=== PATIENT | female | born 1960 | race Caucasian/White ===

== ENCOUNTER 2022-07-07 20:52 | Inpatient (IN) | payer MEDICARE, MEDICAID ==
[~2022-07-07] VITALS: Ht 165.1 cm; Wt 125.2 kg
[2022-07-07 21:46] LABS: BG BASE EXCESS -5.6 mmol/L (-2.0-2.0); BG CARBOXYHEMOGLOBIN 0.8 % (0.5-1.5); BG FRACTION INSPIRED OXYGEN 100; BG HCO3 ACT 19.2 mmol/L (22.0-26.0); BG METHEMOGLOBIN 0.4 % (0.0-1.5); BG OXYHEMOGLOBIN 97.8 % (94.0-97.0); BG PCO2 35.9 mmHg (35.0-45.0); BG PH 7.347 (7.350-7.450); BG PO2 170.7 mmHg (75.0-100.0); BG SAMPLE SITE RIGHT RADIAL; BG TOTAL HEMOGLOBIN 16.5 g/dL (12.0-18.0); BG TOTAL RESPIRATORY RATE 16 b/min; BG VENT MODE MASK - NRB
[2022-07-07 22:00] LABS: CHLORIDE 100 mEq/L (98-107)
[2022-07-07 22:30] LABS: ETHANOL BLOOD < 10 mg/dL
[2022-07-07 22:40] LABS: CREATINE KINASE 6966 IU/L (26-192)
[2022-07-07] MEDS ORDERED: VANCOMYCIN 1,000 MG in DEXT 5% WATER 250 ML IV NR (23:00)
[2022-07-07] MEDS ORDERED: SODIUM CHLORIDE 0.9% 1000ML BAG (SEPSIS BOLUS) IV ONE (23:00)
[2022-07-07] MEDS ORDERED: PIPERACILLIN/TAZ 3.375G PREMIX 50 ML IV NR (23:00)
[2022-07-07] MEDS ORDERED: ONDANSETRON HCL 4MG/2ML INJ IV PRN (23:15)
[2022-07-07] MEDS ORDERED: DOCUSATE SODIUM 100MG CAPSULE PO PRN (23:15)
[2022-07-07] MEDS ORDERED: MAGNESIUM/ALUMINUM HYDROXIDE/SIMETHICONE 30ML UDC PO PRN (23:15)
[2022-07-07] MEDS ORDERED: NITROGLYCERIN 0.4MG TABLET SL SL PRN (23:15)
[2022-07-07] MEDS ORDERED: CLONIDINE 0.1MG TABLET PO PRN (23:15)
[2022-07-07] MEDS ORDERED: IPRATROPIUM/ALBUTEROL 0.5-3(2.5)MG/3ML NEB NEB PRN (23:15)
[2022-07-07] MEDS ORDERED: HALOPERIDOL LACTATE 5MG/ML VIAL IM PRN (23:15)
[2022-07-07] MEDS ORDERED: ACETAMINOPHEN 325MG TABLET PO PRN (23:15)
[2022-07-07] MEDS ORDERED: GUAIFENESIN 200MG/10ML SUGAR FREE UDC PO PRN (23:15)
[2022-07-08] MEDS: DEXT 5%/LACTATED RINGERS 1,000 ML IV SCH ×2 (00:02→09:34)
[2022-07-08 00:18] LABS: T4 FREE 0.99 ng/dL (0.76-1.46)
[2022-07-08 00:45] LABS: FOLIC ACID (FOLATE) SERUM > 20.00 ng/mL (>5.38); VITAMIN B12 SERUM 860 pg/mL (211-911)
[2022-07-08 08:00] VITALS: BP 103/57
[2022-07-08 08:26] LABS: CLARITY URINE CLEAR (CLEAR); COLOR URINE YELLOW (YELLOW); KETONES URINE NEGATIVE (NEGATIVE); LEUKOCYTE ESTERASE URINE NEGATIVE (NEGATIVE); NITRITE URINE NEGATIVE (NEGATIVE); OCCULT BLOOD URINE 2+ (NEGATIVE); PH URINE 5.5 (4.5-8.0); PROTEIN URINE 1+ (NEGATIVE); UROBILINOGEN URINE 0.2 E.U./dL (0.2-1.0)
[2022-07-08] MEDS ORDERED: PANTOPRAZOLE SODIUM 40 MG/VIAL IV SCH (09:00)
[2022-07-08] MEDS: CITRIC ACID/SODIUM CITRATE SOLN 15ML UDC PO SCH ×3 (09:17→18:20)
[2022-07-08] MEDS: ASPIRIN 325MG EC TABLET PO SCH (09:17)
[2022-07-08 11:45] LABS: BASOPHILS % 0.4 % (0.0-2.0); EOSINOPHILS % 0.1 % (0.0-5.0); HEMATOCRIT. 38.8 % (36.0-48.0); HEMOGLOBIN. 12.8 g/dL (12.0-16.0); LYMPHOCYTES % 23.1 % (20.0-50.0); MEAN CORPUSCULAR HEMOGLOBIN 32.2 pg (28.0-32.0); MEAN CORPUSCULAR VOLUME 97.8 fL (81.0-99.0); MEAN PLATELET VOLUME 7.7 fl (7.4-10.4); MONOCYTES % 11.3 % (2.0-8.0); NEUTROPHILS % 65.1 % (40.0-76.0); PLATELET 82 x1000/uL (130-400); RED BLOOD CELL COUNT 3.97 mill/uL (4.2-5.4); RED CELL DISTRIBUTION WIDTH 14.9 % (11.6-14.6)
[2022-07-08 12:00] VITALS: BP 106/67
[2022-07-08] MEDS: FAMOTIDINE 20MG/2ML VIAL IV SCH (13:03)
[2022-07-08] MEDS: AZITHROMYCIN 500 MG in DEXT 5% WATER 250 ML IV SCH (13:04)
[2022-07-08] MEDS: CEFTRIAXONE 1,000 MG in DEXTROSE 5% WATER 50 ML IV SCH (13:04)
[2022-07-08] MEDS: ENOXAPARIN 40MG/0.4ML SYR SUBCUT SCH (14:00)
[2022-07-08] MEDS ORDERED: FLUT1DIS3 IH (14:15)
[2022-07-08] MEDS ORDERED: ALBU05 IH (14:16)
[2022-07-08] MEDS ORDERED: BENZ1TAB7 PO (14:18)
[2022-07-08] MEDS ORDERED: BENZ2TAB7 PO (14:18)
[2022-07-08] MEDS ORDERED: DIVA-75 PO (14:18)
[2022-07-08] MEDS ORDERED: FLUP10TA13 PO (14:19)
[2022-07-08] MEDS ORDERED: GABA300C PO (14:19)
[2022-07-08] MEDS ORDERED: LEVO75TA PO (14:20)
[2022-07-08] MEDS ORDERED: OLAN7.5T18 PO (14:20)
[2022-07-08] MEDS ORDERED: PROP10TA10 PO (14:21)
[2022-07-08 14:48] LABS: CHLORIDE 109 mEq/L (98-107)
[2022-07-08 14:55] LABS: PHOSPHORUS 5.1 mg/dL (2.5-4.9)
[2022-07-08 15:57] LABS: *AMPHETAMINES SCREEN URINE NEGATIVE (NEGATIVE); *BARBITURATES SCREEN URINE NEGATIVE (NEGATIVE); *BENZODIAZEPINES SCREEN URINE NEGATIVE (NEGATIVE); *COCAINE SCREEN URINE NEGATIVE (NEGATIVE); CANNABINOID URINE SCREEN NEGATIVE (NEGATIVE); METHADONE URINE SCREEN NEGATIVE (NEGATIVE); OPIATES URINE SCREEN NEGATIVE (NEGATIVE); PHENCYCLIDINE URINE SCREEN NEGATIVE (NEGATIVE)
[2022-07-08 16:00] VITALS: BP_SYST 101; BP_SYST 130; BP_DIAS 56; BP_DIAS 65
[2022-07-08 16:31] LABS: BASOPHILS % 0.3 % (0.0-2.0); EOSINOPHILS % 0.3 % (0.0-5.0); HEMATOCRIT. 38.6 % (36.0-48.0); HEMOGLOBIN. 12.6 g/dL (12.0-16.0); LYMPHOCYTES % 25.8 % (20.0-50.0); MEAN CORPUSCULAR VOLUME 97.4 fL (81.0-99.0); MEAN PLATELET VOLUME 7.7 fl (7.4-10.4); MONOCYTES % 10.8 % (2.0-8.0); NEUTROPHILS % 62.8 % (40.0-76.0); PLATELET 88 x1000/uL (130-400); RED BLOOD CELL COUNT 3.96 mill/uL (4.2-5.4); RED CELL DISTRIBUTION WIDTH 15.1 % (11.6-14.6)
[2022-07-08] MEDS ORDERED: LORA-249 MT (16:52)
[2022-07-08 20:00] VITALS: BP 121/51
[2022-07-09] VITALS: BP 136/80
[2022-07-09] MEDS: ACETAMINOPHEN 325MG TABLET PO PRN ×2 (02:57→09:01)
[2022-07-09 04:00] VITALS: BP 112/74
[2022-07-09 08:00] VITALS: BP 137/71
[2022-07-09] MEDS: FAMOTIDINE 20MG/2ML VIAL IV SCH (08:59)
[2022-07-09] MEDS: CITRIC ACID/SODIUM CITRATE SOLN 15ML UDC PO SCH (08:59)
[2022-07-09] MEDS: ASPIRIN 325MG EC TABLET PO SCH (08:59)
[2022-07-09] MEDS ORDERED: CEFTRIAXONE 1 G PREMIX 50 ML IV SCH (09:00)
[2022-07-09] MEDS: SODIUM CHLORIDE 0.45% 1,000 ML IV SCH ×2 (09:30→19:30)
[2022-07-09 09:43] LABS: CREATINE KINASE 2966 IU/L (26-192)
[2022-07-09] MEDS: AZITHROMYCIN 500 MG in DEXT 5% WATER 250 ML IV SCH (11:17)
[2022-07-09] MEDS: CEFTRIAXONE 1,000 MG in DEXTROSE 5% WATER 50 ML IV SCH (11:17)
[2022-07-09 12:00] VITALS: BP 105/70
[2022-07-09] MEDS: ENOXAPARIN 40MG/0.4ML SYR SUBCUT SCH (14:00)
[2022-07-09 14:04] LABS: BASOPHILS % 0.2 % (0.0-2.0); EOSINOPHILS % 1.5 % (0.0-5.0); HEMATOCRIT. 35.7 % (36.0-48.0); HEMOGLOBIN. 11.9 g/dL (12.0-16.0); LYMPHOCYTES % 29.3 % (20.0-50.0); MEAN CORPUSCULAR HEMOGLOBIN 32.4 pg (28.0-32.0); MEAN CORPUSCULAR VOLUME 97.2 fL (81.0-99.0); MEAN PLATELET VOLUME 8.1 fl (7.4-10.4); MONOCYTES % 9.6 % (2.0-8.0); NEUTROPHILS % 59.4 % (40.0-76.0); PLATELET 84 x1000/uL (130-400); RED BLOOD CELL COUNT 3.67 mill/uL (4.2-5.4); RED CELL DISTRIBUTION WIDTH 14.7 % (11.6-14.6)
[2022-07-09 16:00] VITALS: BP 98/62
[2022-07-09 20:00] VITALS: BP_SYST 100; BP_SYST 99; BP_DIAS 36; BP_DIAS 64
[2022-07-09] MEDS: IPRATROPIUM/ALBUTEROL 0.5-3(2.5)MG/3ML NEB HHN SCH (20:29)
[2022-07-10] VITALS: BP 100/64
[2022-07-10] MEDS: IPRATROPIUM/ALBUTEROL 0.5-3(2.5)MG/3ML NEB HHN SCH ×4 (01:57→20:11)
[2022-07-10] MEDS: ZOLPIDEM TARTRATE 5MG TABLET PO PRN ×2 (02:15→21:19)
[2022-07-10 04:00] VITALS: BP 103/59
[2022-07-10] MEDS: SODIUM CHLORIDE 0.45% 1,000 ML IV SCH (05:30)
[2022-07-10 07:28] LABS: BASOPHILS % 0.3 % (0.0-2.0); EOSINOPHILS % 3.2 % (0.0-5.0); HEMATOCRIT. 34.9 % (36.0-48.0); HEMOGLOBIN. 11.8 g/dL (12.0-16.0); LYMPHOCYTES % 30.4 % (20.0-50.0); MEAN CORPUSCULAR HEMOGLOBIN 32.8 pg (28.0-32.0); MEAN CORPUSCULAR VOLUME 96.7 fL (81.0-99.0); MEAN PLATELET VOLUME 7.8 fl (7.4-10.4); MONOCYTES % 8.4 % (2.0-8.0); NEUTROPHILS % 57.7 % (40.0-76.0); PLATELET 87 x1000/uL (130-400); RED BLOOD CELL COUNT 3.61 mill/uL (4.2-5.4); RED CELL DISTRIBUTION WIDTH 14.8 % (11.6-14.6)
[2022-07-10 08:00] VITALS: BP 104/57
[2022-07-10] MEDS: ACETAMINOPHEN 325MG TABLET PO PRN (08:22)
[2022-07-10] MEDS: FAMOTIDINE 20MG/2ML VIAL IV SCH (08:23)
[2022-07-10] MEDS: ASPIRIN 325MG EC TABLET PO SCH (08:23)
[2022-07-10 12:00] VITALS: BP 102/59
[2022-07-10] MEDS: CEFTRIAXONE 1,000 MG in DEXTROSE 5% WATER 50 ML IV SCH (12:11)
[2022-07-10] MEDS: AZITHROMYCIN 500 MG TABLET PO SCH (12:12)
[2022-07-10] MEDS: ENOXAPARIN 40MG/0.4ML SYR SUBCUT SCH (14:00)
[2022-07-10 16:00] VITALS: BP 114/71
[2022-07-10 20:00] VITALS: BP 123/57
[2022-07-10] MEDS: GUAIFENESIN 600MG ER TABLET PO SCH (21:19)
[2022-07-11] VITALS: BP 105/64
[2022-07-11] MEDS: IPRATROPIUM/ALBUTEROL 0.5-3(2.5)MG/3ML NEB HHN SCH ×4 (01:16→21:25)
[2022-07-11 04:00] VITALS: BP 122/68
[2022-07-11] MEDS: ASPIRIN 325MG EC TABLET PO SCH (09:20)
[2022-07-11] MEDS: GUAIFENESIN 600MG ER TABLET PO SCH ×2 (09:20→21:10)
[2022-07-11] MEDS: CEFTRIAXONE 1,000 MG in DEXTROSE 5% WATER 50 ML IV SCH (09:20)
[2022-07-11] MEDS: FAMOTIDINE 20MG TABLET PO SCH (09:21)
[2022-07-11] MEDS: ACETAMINOPHEN 325MG TABLET PO PRN (09:21)
[2022-07-11 10:07] LABS: ANTI-NUCLEAR ANTIBODIES DIRECT Negative (Negative)
[2022-07-11 12:00] VITALS: BP 112/69
[2022-07-11 13:44] LABS: BG CARBOXYHEMOGLOBIN 0.9 % (0.5-1.5); BG DEOXYHEMOGLOBIN 3.2 % (0.0-5.0); BG FRACTION INSPIRED OXYGEN 21; BG HCO3 ACT 29.6 mmol/L (22.0-26.0); BG METHEMOGLOBIN 0.2 % (0.0-1.5); BG OXYGEN SATURATION 96.8 % (92.0-98.5); BG OXYHEMOGLOBIN 95.7 % (94.0-97.0); BG PCO2 35.4 mmHg (35.0-45.0); BG PO2 81.4 mmHg (75.0-100.0); BG SAMPLE SITE RIGHT RADIAL; BG TOTAL HEMOGLOBIN 13.5 g/dL (12.0-18.0); BG VENT MODE ROOM AIR
[2022-07-11] MEDS: ENOXAPARIN 40MG/0.4ML SYR SUBCUT SCH (14:00)
[2022-07-11] MEDS: AZITHROMYCIN 500 MG TABLET PO SCH (14:34)
[2022-07-11 16:00] VITALS: BP 105/74
[2022-07-11] MEDS: SODIUM CHLORIDE 0.45% 1,000 ML IV SCH (17:57)
[2022-07-11 20:25] VITALS: BP 134/80
[2022-07-11] MEDS: VALPROIC ACID 250MG CAPSULE PO SCH (21:10)
[2022-07-11] MEDS: GABAPENTIN 300MG CAPSULE PO SCH (21:10)
[2022-07-11] MEDS: ZOLPIDEM TARTRATE 5MG TABLET PO PRN (21:10)
[2022-07-12 00:20] VITALS: BP 130/80
[2022-07-12] MEDS: IPRATROPIUM/ALBUTEROL 0.5-3(2.5)MG/3ML NEB HHN SCH ×4 (01:38→21:22)
[2022-07-12] MEDS: SODIUM CHLORIDE 0.45% 1,000 ML IV SCH (01:52)
[2022-07-12 04:00] VITALS: BP 127/77
[2022-07-12] MEDS: ACETAMINOPHEN 325MG TABLET PO PRN (05:18)
[2022-07-12] MEDS: VALPROIC ACID 250MG CAPSULE PO SCH ×3 (06:19→21:53)
[2022-07-12] MEDS: LEVOTHYROXINE SODIUM 75MCG TABLET PO SCH (06:19)
[2022-07-12] MEDS: GABAPENTIN 300MG CAPSULE PO SCH ×3 (06:19→21:53)
[2022-07-12 06:30] LABS: BASOPHILS % 0.5 % (0.0-2.0); EOSINOPHILS % 2.5 % (0.0-5.0); HEMATOCRIT. 38.6 % (36.0-48.0); HEMOGLOBIN. 12.8 g/dL (12.0-16.0); LYMPHOCYTES % 36.3 % (20.0-50.0); MEAN CORPUSCULAR VOLUME 96.3 fL (81.0-99.0); MEAN PLATELET VOLUME 7.9 fl (7.4-10.4); MONOCYTES % 7.4 % (2.0-8.0); NEUTROPHILS % 53.3 % (40.0-76.0); PLATELET 139 x1000/uL (130-400); RED BLOOD CELL COUNT 4.01 mill/uL (4.2-5.4); RED CELL DISTRIBUTION WIDTH 14.6 % (11.6-14.6)
[2022-07-12 08:02] VITALS: BP 114/73
[2022-07-12] MEDS: GUAIFENESIN 600MG ER TABLET PO SCH ×2 (08:36→21:53)
[2022-07-12] MEDS: FAMOTIDINE 20MG TABLET PO SCH (08:37)
[2022-07-12] MEDS: ASPIRIN 325MG EC TABLET PO SCH (08:37)
[2022-07-12 12:05] VITALS: BP 110/76
[2022-07-12] MEDS: AZITHROMYCIN 500 MG TABLET PO SCH (12:08)
[2022-07-12] MEDS: DEXT 5%/0.45% NACL 1000ML 1,000 ML IV SCH (12:08)
[2022-07-12] MEDS: CEFTRIAXONE 1,000 MG in DEXTROSE 5% WATER 50 ML IV SCH (12:08)
[2022-07-12] MEDS: ENOXAPARIN 40MG/0.4ML SYR SUBCUT SCH (13:20)
[2022-07-12 16:00] VITALS: BP 104/66
[2022-07-12 20:00] VITALS: BP 121/76
[2022-07-13] VITALS: BP 130/80
[2022-07-13] MEDS: IPRATROPIUM/ALBUTEROL 0.5-3(2.5)MG/3ML NEB HHN SCH ×4 (01:04→21:00)
[2022-07-13 04:00] VITALS: BP 118/60
[2022-07-13] MEDS: DEXT 5%/0.45% NACL 1000ML 1,000 ML IV SCH ×2 (05:47→22:02)
[2022-07-13] MEDS: VALPROIC ACID 250MG CAPSULE PO SCH ×3 (06:38→22:03)
[2022-07-13] MEDS: LEVOTHYROXINE SODIUM 75MCG TABLET PO SCH (06:38)
[2022-07-13] MEDS: GABAPENTIN 300MG CAPSULE PO SCH ×3 (06:38→22:04)
[2022-07-13 08:00] VITALS: BP 112/61
[2022-07-13] MEDS: FAMOTIDINE 20MG TABLET PO SCH (09:10)
[2022-07-13] MEDS: ASPIRIN 325MG EC TABLET PO SCH (09:10)
[2022-07-13] MEDS: GUAIFENESIN 600MG ER TABLET PO SCH ×2 (09:11→22:03)
[2022-07-13] MEDS: DESMOPRESSIN ACETATE 0.1MG TABLET PO SCH ×2 (09:11→22:04)
[2022-07-13] MEDS: ACYCLOVIR 400 MG TABLET PO SCH ×3 (09:11→23:35)
[2022-07-13 12:03] VITALS: BP 99/49
[2022-07-13] MEDS: CEFTRIAXONE 1,000 MG in DEXTROSE 5% WATER 50 ML IV SCH (14:04)
[2022-07-13] MEDS: ENOXAPARIN 40MG/0.4ML SYR SUBCUT SCH (14:06)
[2022-07-13 16:00] VITALS: BP 99/60
[2022-07-13 20:00] VITALS: BP_SYST 100; BP_SYST 127; BP_DIAS 72; BP_DIAS 75
[2022-07-14] VITALS: BP 101/54
[2022-07-14] MEDS: IPRATROPIUM/ALBUTEROL 0.5-3(2.5)MG/3ML NEB HHN SCH ×4 (01:35→21:38)
[2022-07-14 04:00] VITALS: BP 99/55
[2022-07-14] MEDS: LEVOTHYROXINE SODIUM 75MCG TABLET PO SCH (06:52)
[2022-07-14] MEDS: VALPROIC ACID 250MG CAPSULE PO SCH ×3 (06:53→21:30)
[2022-07-14] MEDS: GABAPENTIN 300MG CAPSULE PO SCH ×3 (06:53→21:30)
[2022-07-14] MEDS: ACYCLOVIR 400 MG TABLET PO SCH ×3 (07:09→22:21)
[2022-07-14 07:30] LABS: BASOPHILS % 0.4 % (0.0-2.0); EOSINOPHILS % 4.7 % (0.0-5.0); HEMATOCRIT. 38.2 % (36.0-48.0); HEMOGLOBIN. 12.6 g/dL (12.0-16.0); LYMPHOCYTES % 31.3 % (20.0-50.0); MEAN CORPUSCULAR HEMOGLOBIN 31.5 pg (28.0-32.0); MEAN CORPUSCULAR VOLUME 95.8 fL (81.0-99.0); MEAN PLATELET VOLUME 7.9 fl (7.4-10.4); MONOCYTES % 8.1 % (2.0-8.0); NEUTROPHILS % 55.5 % (40.0-76.0); PLATELET 167 x1000/uL (130-400); RED BLOOD CELL COUNT 3.99 mill/uL (4.2-5.4); RED CELL DISTRIBUTION WIDTH 14.6 % (11.6-14.6)
[2022-07-14 08:00] VITALS: BP 116/97
[2022-07-14] MEDS: DESMOPRESSIN ACETATE 0.1MG TABLET PO SCH ×2 (08:31→21:30)
[2022-07-14] MEDS: ASPIRIN 325MG EC TABLET PO SCH (08:31)
[2022-07-14] MEDS: GUAIFENESIN 600MG ER TABLET PO SCH ×2 (08:31→21:30)
[2022-07-14] MEDS: FAMOTIDINE 20MG TABLET PO SCH (08:31)
[2022-07-14 12:00] VITALS: BP 108/55
[2022-07-14] MEDS: ENOXAPARIN 40MG/0.4ML SYR SUBCUT SCH (13:59)
[2022-07-14 16:30] VITALS: BP 127/76
[2022-07-14 20:00] VITALS: BP 114/94
== END 2022-07-14 22:56 | DRG 871 ==
LOC: ER 21:25 → SUPCPDRO 23:07 → MICUSO 07-08 00:33 → 8WST 07-08 06:55
PROVIDERS: ADMIT Internal Medicine; ATTEND Internal Medicine
DX: A41.9 Sepsis, unspecified organism (principal); G82.50 Quadriplegia, unspecified; J96.01 Acute respiratory failure with hypoxia; G92.8 Other toxic encephalopathy; N17.0 Acute kidney failure with tubular necrosis; I21.4 Non-ST elevation (NSTEMI) myocardial infarction; J18.9 Pneumonia, unspecified organism; M62.82 Rhabdomyolysis; G93.40 Encephalopathy, unspecified; E87.20 Acidosis, unspecified; E87.3 Alkalosis; E87.0 Hyperosmolality and hypernatremia; E44.0 Moderate protein-calorie malnutrition; Z68.42 Body mass index [BMI] 45.0-49.9, adult; R65.20 Severe sepsis without septic shock; Z20.822 Contact with and (suspected) exposure to COVID-19; R74.01 Elevation of levels of liver transaminase levels; D64.9 Anemia, unspecified; D69.6 Thrombocytopenia, unspecified; N13.9 Obstructive and reflux uropathy, unspecified; B02.9 Zoster without complications; F31.9 Bipolar disorder, unspecified; G90.8 Other disorders of autonomic nervous system; E66.01 Morbid (severe) obesity due to excess calories; E03.9 Hypothyroidism, unspecified; Z87.891 Personal history of nicotine dependence; Z82.49 Family history of ischemic heart disease and other diseases of the circulatory system
CPT/HCPCS: 36415; 36600; 70551; 71045; 74176; 80048; 80053; 80061; 80305; 80320; 81003; 82140; 82375; 82550; 82607; 82746; 82805; 82962; 83036; 83540; 83550; 83605; 83735; 84100; 84439; 84443; 84484; 85025; 86038; 86160; 86850; 86900; 87426; 93005; 93306; 93970; 94640; 97116; 97162; 97166; 97530; 99291; C9113; J0456; J0696; J1650; J2543; J3370; J3490; J7060; A4315; G0480

== ENCOUNTER 2022-07-14 22:50 | Inpatient (IN) | payer MEDICARE, MEDICAID ==
[~2022-07-14] VITALS: Ht 165.1 cm; Wt 108.4 kg
[2022-07-14 22:50] VITALS: BP 115/58
[~2022-07-14 22:50] MED LIST: ALBU05 IH; BENZ1TAB7 PO; BENZ2TAB7 PO; DIVA-75 PO; FLUP10TA13 PO; FLUT1DIS3 IH; GABA300C PO; LEVO75TA PO; LORA-249 MT; OLAN7.5T18 PO; PROP10TA10 PO
[2022-07-15] MEDS ORDERED: HALOPERIDOL 0.5MG TABLET PO PRN (00:30)
[2022-07-15] MEDS ORDERED: IPRATROPIUM/ALBUTEROL 0.5-3(2.5)MG/3ML NEB HHN PRN (00:30)
[2022-07-15] MEDS ORDERED: ONDANSETRON HCL 4MG TABLET PO PRN (00:30)
[2022-07-15] MEDS ORDERED: MAGNESIUM/ALUMINUM HYDROXIDE/SIMETHICONE 30ML UDC PO PRN (00:45)
[2022-07-15] MEDS ORDERED: GUAIFENESIN 200MG/10ML SUGAR FREE UDC PO PRN (00:45)
[2022-07-15] MEDS ORDERED: CLONIDINE 0.1MG TABLET PO PRN (00:45)
[2022-07-15] MEDS ORDERED: NITROGLYCERIN 0.4MG TABLET SL SL PRN (00:45)
[2022-07-15] MEDS ORDERED: ACETAMINOPHEN 325MG TABLET PO PRN (00:45)
[2022-07-15] MEDS: IPRATROPIUM/ALBUTEROL 0.5-3(2.5)MG/3ML NEB HHN SCH ×4 (01:37→22:15)
[2022-07-15 02:12] LABS: CLARITY URINE CLEAR (CLEAR); COLOR URINE YELLOW (YELLOW); KETONES URINE NEGATIVE (NEGATIVE); LEUKOCYTE ESTERASE URINE NEGATIVE (NEGATIVE); NITRITE URINE NEGATIVE (NEGATIVE); OCCULT BLOOD URINE TRACE (NEGATIVE); PROTEIN URINE NEGATIVE (NEGATIVE); SPECIFIC GRAVITY URINE 1.004 (1.005-1.030); UROBILINOGEN URINE 0.2 E.U./dL (0.2-1.0)
[2022-07-15] MEDS: VALPROIC ACID 250MG CAPSULE PO SCH ×3 (06:37→21:26)
[2022-07-15] MEDS: GABAPENTIN 300MG CAPSULE PO SCH ×3 (06:37→21:27)
[2022-07-15] MEDS: ACYCLOVIR 200MG CAPSULE PO SCH ×2 (06:37→14:22)
[2022-07-15] MEDS: LEVOTHYROXINE SODIUM 75MCG TABLET PO SCH (06:38)
[2022-07-15 06:57] LABS: BASOPHILS % 0.7 % (0.0-2.0); EOSINOPHILS % 4.6 % (0.0-5.0); HEMOGLOBIN. 12.6 g/dL (12.0-16.0); LYMPHOCYTES % 32.7 % (20.0-50.0); MEAN CORPUSCULAR HEMOGLOBIN 32.4 pg (28.0-32.0); MEAN PLATELET VOLUME 7.9 fl (7.4-10.4); MONOCYTES % 7.9 % (2.0-8.0); NEUTROPHILS % 54.1 % (40.0-76.0); PLATELET 183 x1000/uL (130-400); RED CELL DISTRIBUTION WIDTH 14.3 % (11.6-14.6)
[2022-07-15 08:00] VITALS: BP 111/66
[2022-07-15] MEDS: GUAIFENESIN 600MG ER TABLET PO SCH ×2 (08:59→21:27)
[2022-07-15] MEDS: FAMOTIDINE 20MG TABLET PO SCH (08:59)
[2022-07-15] MEDS: ENOXAPARIN 40MG/0.4ML SYR SUBCUT SCH (08:59)
[2022-07-15] MEDS: ASPIRIN 325MG EC TABLET PO SCH (08:59)
[2022-07-15] MEDS ORDERED: DESMOPRESSIN ACETATE 0.1MG TABLET PO SCH (09:00)
[2022-07-15 09:27] LABS: CHLORIDE 111 mEq/L (98-107)
[2022-07-15 20:00] VITALS: BP 109/62
[2022-07-15] MEDS: ACYCLOVIR 400 MG TABLET PO SCH (21:27)
[2022-07-16] MEDS: IPRATROPIUM/ALBUTEROL 0.5-3(2.5)MG/3ML NEB HHN SCH ×2 (06:00→12:00)
[2022-07-16] MEDS: ACYCLOVIR 400 MG TABLET PO SCH ×3 (06:35→21:22)
[2022-07-16] MEDS: LEVOTHYROXINE SODIUM 75MCG TABLET PO SCH (06:35)
[2022-07-16] MEDS: GABAPENTIN 300MG CAPSULE PO SCH ×3 (06:35→21:22)
[2022-07-16] MEDS: VALPROIC ACID 250MG CAPSULE PO SCH ×3 (06:35→21:23)
[2022-07-16 07:00] LABS: BASOPHILS % 0.4 % (0.0-2.0); EOSINOPHILS % 4.4 % (0.0-5.0); HEMATOCRIT. 39.4 % (36.0-48.0); HEMOGLOBIN. 13.2 g/dL (12.0-16.0); LYMPHOCYTES % 31.3 % (20.0-50.0); MEAN CORPUSCULAR HEMOGLOBIN 32.3 pg (28.0-32.0); MEAN CORPUSCULAR VOLUME 96.7 fL (81.0-99.0); MONOCYTES % 7.3 % (2.0-8.0); NEUTROPHILS % 56.6 % (40.0-76.0); PLATELET 200 x1000/uL (130-400); RED BLOOD CELL COUNT 4.07 mill/uL (4.2-5.4); RED CELL DISTRIBUTION WIDTH 14.4 % (11.6-14.6)
[2022-07-16 08:00] VITALS: BP 108/69
[2022-07-16] MEDS: ENOXAPARIN 40MG/0.4ML SYR SUBCUT SCH (08:49)
[2022-07-16] MEDS: ASPIRIN 325MG EC TABLET PO SCH (08:49)
[2022-07-16] MEDS: FAMOTIDINE 20MG TABLET PO SCH (08:49)
[2022-07-16] MEDS: GUAIFENESIN 600MG ER TABLET PO SCH ×2 (08:49→21:23)
[2022-07-16 09:12] LABS: CHLORIDE 111 mEq/L (98-107); CREATINE KINASE 74 IU/L (26-192); TOTAL IRON BINDING CAPACITY 296 ug/dL (250-450)
[2022-07-16] MEDS: ASCORBIC ACID 500 MG TABLET PO SCH (12:31)
[2022-07-16] MEDS: FERROUS SULFATE 325MG TABLET PO SCH ×2 (12:31→17:00)
[2022-07-16 19:47] VITALS: BP 123/59
[2022-07-17] MEDS: ACYCLOVIR 400 MG TABLET PO SCH ×3 (06:54→21:45)
[2022-07-17] MEDS: LEVOTHYROXINE SODIUM 75MCG TABLET PO SCH (06:54)
[2022-07-17] MEDS: VALPROIC ACID 250MG CAPSULE PO SCH ×3 (06:54→21:45)
[2022-07-17] MEDS: GABAPENTIN 300MG CAPSULE PO SCH ×3 (06:54→21:45)
[2022-07-17 08:00] VITALS: BP 116/71
[2022-07-17] MEDS: ASCORBIC ACID 500 MG TABLET PO SCH (09:01)
[2022-07-17] MEDS: ASPIRIN 325MG EC TABLET PO SCH (09:01)
[2022-07-17] MEDS: FAMOTIDINE 20MG TABLET PO SCH (09:01)
[2022-07-17] MEDS: ENOXAPARIN 40MG/0.4ML SYR SUBCUT SCH (09:02)
[2022-07-17] MEDS: FERROUS SULFATE 325MG TABLET PO SCH ×3 (09:02→18:56)
[2022-07-17] MEDS: GUAIFENESIN 600MG ER TABLET PO SCH ×2 (09:02→21:45)
[2022-07-17 11:37] LABS: BASOPHILS % 0.7 % (0.0-2.0); EOSINOPHILS % 3.7 % (0.0-5.0); HEMOGLOBIN. 12.6 g/dL (12.0-16.0); LYMPHOCYTES % 33.8 % (20.0-50.0); MEAN CORPUSCULAR HEMOGLOBIN 31.9 pg (28.0-32.0); MEAN CORPUSCULAR VOLUME 96.6 fL (81.0-99.0); MEAN PLATELET VOLUME 8.4 fl (7.4-10.4); MONOCYTES % 6.8 % (2.0-8.0); PLATELET 203 x1000/uL (130-400); RED BLOOD CELL COUNT 3.94 mill/uL (4.2-5.4); RED CELL DISTRIBUTION WIDTH 14.5 % (11.6-14.6)
[2022-07-17 20:11] VITALS: BP 122/51
[2022-07-18] MEDS: LEVOTHYROXINE SODIUM 75MCG TABLET PO SCH (07:07)
[2022-07-18] MEDS: ACYCLOVIR 400 MG TABLET PO SCH ×3 (07:07→21:44)
[2022-07-18] MEDS: VALPROIC ACID 250MG CAPSULE PO SCH ×3 (07:08→21:44)
[2022-07-18] MEDS: GABAPENTIN 300MG CAPSULE PO SCH ×3 (07:08→21:44)
[2022-07-18 07:21] LABS: BASOPHILS % 0.5 % (0.0-2.0); EOSINOPHILS % 4.6 % (0.0-5.0); HEMATOCRIT. 38.6 % (36.0-48.0); HEMOGLOBIN. 13.2 g/dL (12.0-16.0); LYMPHOCYTES % 26.7 % (20.0-50.0); MEAN CORPUSCULAR HEMOGLOBIN 32.5 pg (28.0-32.0); MEAN CORPUSCULAR VOLUME 95.2 fL (81.0-99.0); MEAN PLATELET VOLUME 8.1 fl (7.4-10.4); MONOCYTES % 5.7 % (2.0-8.0); NEUTROPHILS % 62.5 % (40.0-76.0); PLATELET 222 x1000/uL (130-400); RED BLOOD CELL COUNT 4.05 mill/uL (4.2-5.4); RED CELL DISTRIBUTION WIDTH 14.2 % (11.6-14.6)
[2022-07-18 08:00] VITALS: BP 111/65
[2022-07-18] MEDS: ENOXAPARIN 40MG/0.4ML SYR SUBCUT SCH (09:05)
[2022-07-18] MEDS: FAMOTIDINE 20MG TABLET PO SCH (09:05)
[2022-07-18] MEDS: ASCORBIC ACID 500 MG TABLET PO SCH (09:05)
[2022-07-18] MEDS: FERROUS SULFATE 325MG TABLET PO SCH ×3 (09:05→17:20)
[2022-07-18] MEDS: ASPIRIN 325MG EC TABLET PO SCH (09:05)
[2022-07-18] MEDS: GUAIFENESIN 600MG ER TABLET PO SCH ×2 (09:05→21:44)
[2022-07-18 23:15] VITALS: BP 120/60
[2022-07-19] MEDS: GABAPENTIN 300MG CAPSULE PO SCH ×3 (06:19→21:26)
[2022-07-19] MEDS: VALPROIC ACID 250MG CAPSULE PO SCH ×3 (06:19→21:26)
[2022-07-19] MEDS: LEVOTHYROXINE SODIUM 75MCG TABLET PO SCH (06:19)
[2022-07-19] MEDS: ACYCLOVIR 400 MG TABLET PO SCH ×3 (06:19→21:26)
[2022-07-19 08:00] VITALS: BP 107/73
[2022-07-19] MEDS: ASCORBIC ACID 500 MG TABLET PO SCH (09:01)
[2022-07-19] MEDS: FERROUS SULFATE 325MG TABLET PO SCH ×3 (09:01→16:58)
[2022-07-19] MEDS: ASPIRIN 325MG EC TABLET PO SCH (09:01)
[2022-07-19] MEDS: GUAIFENESIN 600MG ER TABLET PO SCH ×2 (09:02→21:26)
[2022-07-19] MEDS: FAMOTIDINE 20MG TABLET PO SCH (09:02)
[2022-07-19] MEDS: ENOXAPARIN 40MG/0.4ML SYR SUBCUT SCH (09:02)
[2022-07-19] MEDS: SODIUM CHLORIDE 0.45% 1,000 ML IV SCH (13:00)
[2022-07-19 20:00] VITALS: BP 119/65
[2022-07-20] MEDS: LEVOTHYROXINE SODIUM 75MCG TABLET PO SCH (06:29)
[2022-07-20] MEDS: ACYCLOVIR 400 MG TABLET PO SCH (06:29)
[2022-07-20] MEDS: GABAPENTIN 300MG CAPSULE PO SCH ×3 (06:29→20:49)
[2022-07-20] MEDS: VALPROIC ACID 250MG CAPSULE PO SCH ×3 (06:29→20:50)
[2022-07-20 06:58] LABS: BASOPHILS % 0.3 % (0.0-2.0); EOSINOPHILS % 3.6 % (0.0-5.0); HEMATOCRIT. 35.1 % (36.0-48.0); HEMOGLOBIN. 11.9 g/dL (12.0-16.0); LYMPHOCYTES % 29.9 % (20.0-50.0); MEAN CORPUSCULAR HEMOGLOBIN 32.1 pg (28.0-32.0); MEAN CORPUSCULAR VOLUME 94.7 fL (81.0-99.0); MONOCYTES % 6.3 % (2.0-8.0); NEUTROPHILS % 59.9 % (40.0-76.0); PLATELET 197 x1000/uL (130-400); RED BLOOD CELL COUNT 3.71 mill/uL (4.2-5.4); RED CELL DISTRIBUTION WIDTH 14.5 % (11.6-14.6)
[2022-07-20] MEDS: SODIUM CHLORIDE 0.45% 1,000 ML IV SCH ×2 (07:36→20:56)
[2022-07-20 08:00] VITALS: BP 98/63
[2022-07-20] MEDS: ASPIRIN 325MG EC TABLET PO SCH (10:37)
[2022-07-20] MEDS: ASCORBIC ACID 500 MG TABLET PO SCH (10:37)
[2022-07-20] MEDS: DOCUSATE SODIUM 100MG CAPSULE PO PRN (10:37)
[2022-07-20] MEDS: GUAIFENESIN 600MG ER TABLET PO SCH ×2 (10:37→20:49)
[2022-07-20] MEDS: FERROUS SULFATE 325MG TABLET PO SCH ×3 (10:37→17:15)
[2022-07-20] MEDS: FAMOTIDINE 20MG TABLET PO SCH (10:38)
[2022-07-20] MEDS: ENOXAPARIN 40MG/0.4ML SYR SUBCUT SCH (10:38)
[2022-07-20 20:00] VITALS: BP 101/61
[2022-07-21] MEDS: VALPROIC ACID 250MG CAPSULE PO SCH ×3 (06:09→21:38)
[2022-07-21] MEDS: GABAPENTIN 300MG CAPSULE PO SCH ×3 (06:09→21:38)
[2022-07-21] MEDS: LEVOTHYROXINE SODIUM 75MCG TABLET PO SCH (06:09)
[2022-07-21 07:15] LABS: BASOPHILS % 0.4 % (0.0-2.0); EOSINOPHILS % 3.6 % (0.0-5.0); HEMATOCRIT. 34.8 % (36.0-48.0); HEMOGLOBIN. 11.9 g/dL (12.0-16.0); LYMPHOCYTES % 37.1 % (20.0-50.0); MEAN CORPUSCULAR HEMOGLOBIN 32.4 pg (28.0-32.0); MEAN CORPUSCULAR VOLUME 95.1 fL (81.0-99.0); MEAN PLATELET VOLUME 8.1 fl (7.4-10.4); MONOCYTES % 5.7 % (2.0-8.0); NEUTROPHILS % 53.2 % (40.0-76.0); PLATELET 197 x1000/uL (130-400); RED BLOOD CELL COUNT 3.66 mill/uL (4.2-5.4)
[2022-07-21 08:00] VITALS: BP 129/80
[2022-07-21] MEDS: FAMOTIDINE 20MG TABLET PO SCH (08:23)
[2022-07-21] MEDS: ENOXAPARIN 40MG/0.4ML SYR SUBCUT SCH (08:23)
[2022-07-21] MEDS: FERROUS SULFATE 325MG TABLET PO SCH ×3 (08:23→17:31)
[2022-07-21] MEDS: GUAIFENESIN 600MG ER TABLET PO SCH ×2 (08:23→21:38)
[2022-07-21] MEDS: ASCORBIC ACID 500 MG TABLET PO SCH (08:23)
[2022-07-21] MEDS: ASPIRIN 325MG EC TABLET PO SCH (09:00)
[2022-07-21 13:11] LABS: 25-HYDROXY VITAMIN D3 50 ng/mL (.)
[2022-07-22] MEDS: VALPROIC ACID 250MG CAPSULE PO SCH ×3 (06:24→21:39)
[2022-07-22] MEDS: GABAPENTIN 300MG CAPSULE PO SCH ×3 (06:25→21:39)
[2022-07-22] MEDS: LEVOTHYROXINE SODIUM 75MCG TABLET PO SCH (06:25)
[2022-07-22 07:16] LABS: BASOPHILS % 0.6 % (0.0-2.0); EOSINOPHILS % 3.8 % (0.0-5.0); HEMATOCRIT. 36.2 % (36.0-48.0); HEMOGLOBIN. 12.2 g/dL (12.0-16.0); LYMPHOCYTES % 36.2 % (20.0-50.0); MEAN CORPUSCULAR HEMOGLOBIN 32.5 pg (28.0-32.0); MEAN CORPUSCULAR VOLUME 95.9 fL (81.0-99.0); MEAN PLATELET VOLUME 7.9 fl (7.4-10.4); MONOCYTES % 5.6 % (2.0-8.0); NEUTROPHILS % 53.8 % (40.0-76.0); PLATELET 208 x1000/uL (130-400); RED BLOOD CELL COUNT 3.77 mill/uL (4.2-5.4); RED CELL DISTRIBUTION WIDTH 14.5 % (11.6-14.6)
[2022-07-22 08:00] VITALS: BP 89/40
[2022-07-22] MEDS: GUAIFENESIN 600MG ER TABLET PO SCH ×2 (08:49→21:00)
[2022-07-22] MEDS: FERROUS SULFATE 325MG TABLET PO SCH ×3 (08:49→17:00)
[2022-07-22] MEDS: ASPIRIN 325MG EC TABLET PO SCH (08:50)
[2022-07-22] MEDS: FAMOTIDINE 20MG TABLET PO SCH (08:51)
[2022-07-22] MEDS: ASCORBIC ACID 500 MG TABLET PO SCH (08:51)
[2022-07-22] MEDS: ENOXAPARIN 40MG/0.4ML SYR SUBCUT SCH (08:52)
[2022-07-22 19:49] VITALS: BP 116/79
[2022-07-23] MEDS: LEVOTHYROXINE SODIUM 75MCG TABLET PO SCH (06:29)
[2022-07-23] MEDS: GABAPENTIN 300MG CAPSULE PO SCH ×3 (06:29→21:44)
[2022-07-23] MEDS: VALPROIC ACID 250MG CAPSULE PO SCH ×3 (06:29→21:44)
[2022-07-23 08:00] VITALS: BP 116/76
[2022-07-23] MEDS: ASCORBIC ACID 500 MG TABLET PO SCH (08:24)
[2022-07-23] MEDS: ENOXAPARIN 40MG/0.4ML SYR SUBCUT SCH (08:24)
[2022-07-23] MEDS: FAMOTIDINE 20MG TABLET PO SCH (08:24)
[2022-07-23] MEDS: ASPIRIN 325MG EC TABLET PO SCH (08:29)
[2022-07-23] MEDS: FERROUS SULFATE 325MG TABLET PO SCH ×3 (08:29→16:48)
[2022-07-23] MEDS: GUAIFENESIN 600MG ER TABLET PO SCH ×3 (08:30→21:45)
[2022-07-23 20:11] VITALS: BP 134/76
[2022-07-24] MEDS: LEVOTHYROXINE SODIUM 75MCG TABLET PO SCH (06:43)
[2022-07-24] MEDS: GABAPENTIN 300MG CAPSULE PO SCH ×3 (06:43→21:05)
[2022-07-24] MEDS: VALPROIC ACID 250MG CAPSULE PO SCH ×3 (06:43→21:05)
[2022-07-24 08:00] VITALS: BP 101/67
[2022-07-24] MEDS: FAMOTIDINE 20MG TABLET PO SCH ×2 (09:00→09:54)
[2022-07-24] MEDS: GUAIFENESIN 600MG ER TABLET PO SCH ×3 (09:00→21:00)
[2022-07-24] MEDS: ASCORBIC ACID 500 MG TABLET PO SCH ×2 (09:00→09:54)
[2022-07-24] MEDS: FERROUS SULFATE 325MG TABLET PO SCH ×3 (09:00→13:00)
[2022-07-24] MEDS: DOCUSATE SODIUM 100MG CAPSULE PO PRN ×2 (09:54→10:15)
[2022-07-24] MEDS: ASPIRIN 325MG EC TABLET PO SCH (09:54)
[2022-07-24] MEDS: ENOXAPARIN 40MG/0.4ML SYR SUBCUT SCH (09:55)
[2022-07-24 20:00] VITALS: BP 111/70
[2022-07-25] MEDS: GABAPENTIN 300MG CAPSULE PO SCH ×3 (06:54→21:24)
[2022-07-25] MEDS: VALPROIC ACID 250MG CAPSULE PO SCH ×3 (06:54→21:24)
[2022-07-25] MEDS: LEVOTHYROXINE SODIUM 75MCG TABLET PO SCH (06:54)
[2022-07-25 08:00] VITALS: BP 110/72
[2022-07-25] MEDS: FERROUS SULFATE 325MG TABLET PO SCH ×2 (09:00→09:59)
[2022-07-25] MEDS: ASPIRIN 325MG EC TABLET PO SCH (09:59)
[2022-07-25] MEDS: ASCORBIC ACID 500 MG TABLET PO SCH (09:59)
[2022-07-25] MEDS: GUAIFENESIN 600MG ER TABLET PO SCH ×3 (10:00→21:24)
[2022-07-25] MEDS: FAMOTIDINE 20MG TABLET PO SCH (10:00)
[2022-07-25] MEDS: ENOXAPARIN 40MG/0.4ML SYR SUBCUT SCH (10:01)
[2022-07-25 19:40] VITALS: BP 115/66
[2022-07-26] MEDS: GABAPENTIN 300MG CAPSULE PO SCH ×2 (06:58→14:24)
[2022-07-26] MEDS: LEVOTHYROXINE SODIUM 75MCG TABLET PO SCH (06:58)
[2022-07-26] MEDS: VALPROIC ACID 250MG CAPSULE PO SCH ×2 (06:58→14:24)
[2022-07-26] MEDS ORDERED: ASPI-1406 MT (08:41)
[2022-07-26] MEDS ORDERED: VALP250C3 PO (08:41)
[2022-07-26] MEDS ORDERED: FAMO20TA8 PO (08:41)
[2022-07-26 08:45] VITALS: BP 121/71
[2022-07-26] MEDS: ENOXAPARIN 40MG/0.4ML SYR SUBCUT SCH (09:00)
[2022-07-26] MEDS: FAMOTIDINE 20MG TABLET PO SCH (09:00)
[2022-07-26] MEDS: ASPIRIN 325MG EC TABLET PO SCH (09:00)
[2022-07-26] MEDS: GUAIFENESIN 600MG ER TABLET PO SCH (09:00)
[2022-07-26] MEDS: ASCORBIC ACID 500 MG TABLET PO SCH (10:22)
[2022-07-26] MEDS: FERROUS SULFATE 325MG TABLET PO SCH ×2 (13:00→14:24)
[2022-07-26 13:44] VITALS: BP 121/71
== END 2022-07-26 14:30 | disposition home health service (06) | DRG 70 ==
PROVIDERS: ADMIT Physical Medicine & Rehabilitation Spinal Cord Injury Medicine; ATTEND Internal Medicine
DX: G93.41 Metabolic encephalopathy (principal); G82.50 Quadriplegia, unspecified; J18.9 Pneumonia, unspecified organism; J96.00 Acute respiratory failure, unspecified whether with hypoxia or hypercapnia; N17.0 Acute kidney failure with tubular necrosis; E87.20 Acidosis, unspecified; M62.82 Rhabdomyolysis; E44.0 Moderate protein-calorie malnutrition; R53.81 Other malaise; R26.9 Unspecified abnormalities of gait and mobility; R74.01 Elevation of levels of liver transaminase levels; B02.9 Zoster without complications; F31.9 Bipolar disorder, unspecified; E03.9 Hypothyroidism, unspecified; F20.9 Schizophrenia, unspecified; I10 Essential (primary) hypertension; E66.01 Morbid (severe) obesity due to excess calories; N13.9 Obstructive and reflux uropathy, unspecified; R77.8 Other specified abnormalities of plasma proteins; M79.604 Pain in right leg; M79.605 Pain in left leg; D50.9 Iron deficiency anemia, unspecified; G90.8 Other disorders of autonomic nervous system; L89.890 Pressure ulcer of other site, unstageable; Z20.822 Contact with and (suspected) exposure to COVID-19; I95.9 Hypotension, unspecified; W18.39XA Other fall on same level, initial encounter; Y93.89 Activity, other specified; Y92.098 Other place in other non-institutional residence as the place of occurrence of the external cause; Z82.49 Family history of ischemic heart disease and other diseases of the circulatory system; Y99.8 Other external cause status; Z87.891 Personal history of nicotine dependence; Z68.26 Body mass index [BMI] 26.0-26.9, adult; Z79.899 Other long term (current) drug therapy
CPT/HCPCS: 36415; 80048; 80053; 81003; 82040; 82306; 82550; 82607; 82728; 82746; 83036; 83540; 83550; 84134; 84443; 85025; 87426; 92523; 93970; 97110; 97116; 97162; 97166; 97530; 97535; A6261; J1650